=== PATIENT | male | born 1975 | race Caucasian/White ===

== ENCOUNTER 2016-08-18 13:10 | Emergency (ER) | payer SELFPAY ==
[~2016-08-18] VITALS: Ht 167.6 cm; Wt 67.0 kg
[~2016-08-18 13:10] MED LIST: LORT5TAB PO; XANA2TAB2 PO; ZOVI800T13 PO
[2016-08-18 13:12] VITALS: BP 125/89; PULSE 114; RESP 18; TEMP 99.2; O2SAT 97
--- NOTE | 2016-08-18 14:49 | PD ---
HPI . Depression Chief Complaint: Depression Time Seen by Provider: 14:41 Travel History International Travel<30 days: No Contact w/Intl Traveler<30days: No Traveled to known affect area: No History of Present Illness HPI Patient presents with a chief complaint of depression. He reports a history of drug abuse. He states that he had been clean for a while but has recently started using again. He uses Xanax and heroin. He now feels very depressed and would like to speak with the psychiatrist. [facility] Past Medical History Anxiety: Yes Past Surgical History Abdominal Surgery: Yes (PT SAID HE HAD SIX FEET OF HIS SIGMOID COLON REMOVED, HERNIA REPAIR ) Other Surgery: Yes (HYDROCELE REPAIR) Social History Alcohol Use: Yes (OCC) Tobacco Use: Yes (1 PPD) Substance Use: No Allergies-Medications (Allergen,Severity, Reaction): Coded Allergies: No Known Allergies (Unverified , 08/18/16) Reported Meds & Prescriptions Reported Meds & Active Scripts Active Reported Xanax (Alprazolam) 2 Mg Tab 2 Mg PO BID PRN Review of Systems Psychiatric: Positive: Depression, Substance Abuse Physical Exam Narrative GENERAL: The patient has droopy eyes as if he is very sleepy. He is able to maintain a conversation. SKIN: Warm and dry. Track alexandra on his right arm. HEAD: Atraumatic. Normocephalic. EYES: Pupils equal and round. ENT: No nasal bleeding or discharge. Mucous membranes pink and moist. NECK: Trachea midline. CARDIOVASCULAR: Regular rate and rhythm. RESPIRATORY: No accessory muscle use. MUSCULOSKELETAL: No obvious deformities. No edema. NEUROLOGICAL: Awake and alert. No obvious cranial nerve deficits. Motor grossly within normal limits. Normal speech. PSYCHIATRIC: Depressed mood. Poor judgment. Data Data Last Documented VS Vital Signs Date Time Temp Pulse Resp B/P Pulse Ox O2 Delivery O2 Flow Rate FiO2 08/18/16 13:12 99.2 114 18 125/89 97 Room Air Orders Complete Blood Count With Diff (08/18/16 14:41) Comprehensive Metabolic Panel (08/18/16 14:41) Psych Screen (08/18/16 14:41) Drug Screen, Random Urine (08/18/16 14:41) Alcohol (Ethanol) (08/18/16 14:41) Labs Laboratory Tests Test 08/18/16 15:00 White Blood Count 6.5 TH/MM3 Red Blood Count 5.63 MIL/MM3 Hemoglobin 14.8 GM/DL Hematocrit 44.0 % Mean Corpuscular Volume 78.1 FL Mean Corpuscular Hemoglobin 26.4 PG Mean Corpuscular Hemoglobin 33.8 % Concent Red Cell Distribution Width 15.4 % Platelet Count 152 TH/MM3 Mean Platelet Volume 7.9 FL Neutrophils (%) (Auto) 76.8 % Lymphocytes (%) (Auto) 16.5 % Monocytes (%) (Auto) 5.7 % Eosinophils (%) (Auto) 0.5 % Basophils (%) (Auto) 0.5 % Neutrophils # (Auto) 5.0 TH/MM3 Lymphocytes # (Auto) 1.1 TH/MM3 Monocytes # (Auto) 0.4 TH/MM3 Eosinophils # (Auto) 0.0 TH/MM3 Basophils # (Auto) 0.0 TH/MM3 CBC Comment DIFF FINAL Differential Comment Sodium Level 142 MEQ/L Potassium Level 4.0 MEQ/L Chloride Level 108 MEQ/L Carbon Dioxide Level 27.1 MEQ/L Anion Gap 7 MEQ/L Blood Urea Nitrogen 7 MG/DL Creatinine 1.09 MG/DL Estimat Glomerular Filtration 76 ML/MIN Rate Random Glucose 122 MG/DL Calcium Level 8.9 MG/DL Total Bilirubin 0.5 MG/DL Aspartate Amino Transf 52 U/L (AST/SGOT) Alanine Aminotransferase 52 U/L (ALT/SGPT) Alkaline Phosphatase 113 U/L Total Protein 7.3 GM/DL Albumin 3.9 GM/DL Urine Opiates Screen POS Urine Barbiturates Screen NEG Urine Amphetamines Screen NEG Urine Benzodiazepines Screen POS Urine Cocaine Screen NEG Urine Cannabinoids Screen NEG Ethyl Alcohol Level LESS THAN 3 MG/DL MDM Medical Decision Making Medical Screen Exam Complete: Yes Emergency Medical Condition: Yes Differential Diagnosis Differential diagnosis of depression includes but is not limited to episodic depression, major depression, bipolar disorder, PTSD Narrative Course Patient presents requesting to speak to a psychiatrist because of depression. He is also a substance abuser. A medical clearance exam has been initiated. Once complete, psychiatry will be consult. CBC & BMP Diagram 08/18/16 15:00 Tox screen is positive for opiates and benzodiazepines. Alcohol level is 0. This patient is now medically clear for psychiatric evaluation. Diagnosis Primary Impression: Depression Qualified Code: F32.9 - Depression, unspecified depression type Additional Impression: Substance abuse Condition: Kiera Hernandez MD Aug 18, 2016 14:49
[2016-08-18] MEDS ORDERED: XANA2TAB2 PO (15:22)
[2016-08-18 15:43] LABS: BASOPHIL % 0.5 % (0.0-2.0); EOSINOPHIL % 0.5 % (0.0-4.0); HEMO FLAGS DIFF FINAL; LYMPH % 16.5 % (9.0-44.0); LYMPHOCYTE # 1.1 TH/MM3 (1.0-4.8); MEAN CELL VOLUME 78.1 FL (80.0-100.0); MEAN CORPUSCULAR HEMOGLOBIN 26.4 PG (27.0-34.0); MEAN CORPUSCULAR HGB CONC 33.8 % (32.0-36.0); MONO % 5.7 % (0.0-8.0); NEUT % 76.8 % (16.0-70.0); PLATELET COUNT 152 TH/MM3 (150-450); RED BLOOD COUNT 5.63 MIL/MM3 (4.50-5.90); RED CELL DISTRIBUTION WIDTH 15.4 % (11.6-17.2); WHITE BLOOD COUNT 6.5 TH/MM3 (4.0-11.0)
[2016-08-18 15:47] LABS: AMPHETAMINE, URINE NEG (NEG); BARBITURATES, URINE NEG (NEG); COCAINE, URINE NEG (NEG)
[2016-08-18 16:03] LABS: ALT (GPT) 52 U/L (12-78); ANION GAP 7 MEQ/L (5-15); AST (GOT) 52 U/L (15-37); BICARBONATE 27.1 MEQ/L (21.0-32.0); BLOOD UREA NITROGEN 7 MG/DL (7-18); CHLORIDE 108 MEQ/L (98-107); GLOMERULAR FILTRATION RATE 76 ML/MIN (>89); SODIUM (NA) 142 MEQ/L (136-145)
[2016-08-18 16:05] LABS: ALKALINE PHOSPHATASE 113 U/L (45-117); TOTAL BILIRUBIN ADULT 0.5 MG/DL (0.2-1.0)
== END 2016-08-18 17:40 | disposition home or self-care (01) ==
LOC: NEPD 13:10
DX: F11.10 Opioid abuse, uncomplicated (principal); F32.9 Major depressive disorder, single episode, unspecified; F17.210 Nicotine dependence, cigarettes, uncomplicated
CPT/HCPCS: 80053; 80307; 85025; 99284